=== PATIENT | male | born 1990 | race Caucasian/White ===

== ENCOUNTER 2021-02-24 02:25 | Emergency (ER) | payer OTHER ==
[~2021-02-24] VITALS: Ht 172.7 cm; Wt 74.8 kg
--- NOTE | 2021-02-24 02:38 | NUR ---
PT AMBULATED TO ER WITH C/O STD PROBLEMS, NO SOB OR LABORED BREATHING, AFEBRILE. DR. CONTRERAS AT BEDSIDE, MSE IN PROGRESS.
[2021-02-24] MEDS ORDERED: CEFTRIAXONE 500 MG VIAL IM ONE (02:45)
[2021-02-24] MEDS ORDERED: AZITHROMYCIN 250 MG TABLET PO ONE (02:45)
[2021-02-24] MEDS ORDERED: AZITHROMYCIN 250 MG TABLET ONE (02:48)
[2021-02-24] MEDS ORDERED: CEFTRIAXONE 500 MG VIAL ONE (02:48)
--- NOTE | 2021-02-24 02:50 | NUR ---
Patient discharged to home in stable condition. Denies any pain/discomfort. Written and verbal after care instructions given. Patient verbalizes understanding of instructions. Stressed follow up or return to ER for worsening s/s. Steady gait, accompanied by significant other.
[2021-02-24 02:51] VITALS: BP 128/84
== END 2021-02-24 02:51 | disposition home or self-care (01) ==
LOC: ER 02:28
DX: A63.8 Other specified predominantly sexually transmitted diseases (principal); Z91.013 Allergy to seafood
CPT/HCPCS: 96372; 99283; J0696; A4663; Q0144